=== PATIENT | female | born 1990 | race African-American/Black ===

== ENCOUNTER 2017-06-18 15:09 | Emergency (ER) | payer SELFPAY ==
[2017-06-18 16:08] LABS: Bilirubin Small (Negative); Blood, Urine Negative (Negative); Glucose, Urine (Dipstick) Negative (Negative); Ketone, Urine Negative (Negative); Nitrite Negative (Negative); Protein, Urine (Dipstick) Negative (Neg-Trace)
== END 2017-06-18 16:57 | disposition home or self-care (01) ==
LOC: SCSER 15:09
DX: R05 Cough (principal); F41.9 Anxiety disorder, unspecified; F17.210 Nicotine dependence, cigarettes, uncomplicated; J45.909 Unspecified asthma, uncomplicated
CPT/HCPCS: 81003; 81025; 99283

== ENCOUNTER 2018-04-25 15:22 | Emergency (ER) | payer SELFPAY ==
[2018-04-25] MEDS ORDERED: Ondansetron ODT 8 MG TAB ONE (15:40)
[2018-04-25] MEDS ORDERED: predniSONE 20 MG TAB ONE (15:41)
[2018-04-25 16:26] LABS: Pregnancy Test - Urine (BHCG) Negative (Negative)
[2018-04-25 16:27] LABS: Pregu Control Background? CLEAR/WHITE (CLR/WHITE); Pregu Control Bar Appear? YES (CONTROL BAR); Specific Gravity 1.025 (1.002-1.036)
--- NOTE | 2018-04-25 16:59 | RAD ---
CHEST TWO VIEWS: History: Cough. Comparison: 03-10-16 FINDINGS: Cardiac silhouette and pulmonary vasculature are unremarkable. Prominent rightward scoliotic curvatur e of the midthoracic spine. Small focus of infiltrate projects over the anterior lateral aspect of th e anterior segment left upper lobe. No pleural fluid or pneumothorax. IMPRESSION: Small left upper lobe infiltrate. Clinical correlation regarding other signs and symptoms of left upp er lobe pneumonitis is required. Please consider radiographic follow up after medical treatment to ev aluate for clearing. POS: BYRONH
== END 2018-04-25 17:05 | disposition home or self-care (01) ==
LOC: SCSER 15:22
DX: J18.9 Pneumonia, unspecified organism (principal); J45.909 Unspecified asthma, uncomplicated; F41.9 Anxiety disorder, unspecified; F17.210 Nicotine dependence, cigarettes, uncomplicated
CPT/HCPCS: 71046; 81025; 94640; J7506; J7620

== ENCOUNTER 2018-04-26 05:19 | Emergency (ER) | payer SELFPAY | END 2018-04-26 05:38 | disposition left against medical advice (07) | LOC: SCSER 05:19 | DX: J18.9 Pneumonia, unspecified organism (principal); J45.909 Unspecified asthma, uncomplicated; F41.9 Anxiety disorder, unspecified; F17.210 Nicotine dependence, cigarettes, uncomplicated | CPT/HCPCS: J7620 ==

== ENCOUNTER 2018-04-26 05:52 | Emergency (ER) | payer SELFPAY ==
[2018-04-26] MEDS ORDERED: methylPREDNISolone Sod Succ/PF 125 MG/2 ML VIAL ONE (09:30)
== END 2018-04-26 10:41 | disposition home or self-care (01) ==
LOC: ERS 05:52
DX: J18.9 Pneumonia, unspecified organism (principal); J45.901 Unspecified asthma with (acute) exacerbation; F41.9 Anxiety disorder, unspecified; F17.210 Nicotine dependence, cigarettes, uncomplicated
CPT/HCPCS: 94640; 96372; J2930; J7620

== ENCOUNTER 2019-05-28 19:15 | Inpatient (IN) | payer OTHER ==
[~2019-05-28 19:15] MED LIST: Lidocaine 2% MPF 10 ML AMP (For Epidural Use) ONE
[2019-05-28] MEDS ORDERED: hydrALAZINE 20 MG/ML VIAL SLOW IVP PRN (20:49)
[2019-05-28] MEDS ORDERED: Ibuprofen 800 MG TAB PO PRN (20:49)
[2019-05-28] MEDS ORDERED: HYDROcodone/Acetaminophen 5/325 mg Tablet PO PRN (20:49)
[2019-05-28] MEDS ORDERED: Lidocaine 1% (PF) 30 ML VIAL SC PRN (20:49)
[2019-05-28] MEDS ORDERED: Promethazine HCl 25 MG/ML VIAL IM PRN (20:49)
[2019-05-28] MEDS ORDERED: Meperidine HCl/PF 25 MG/ML VIAL IM/IV PRN (20:49)
[2019-05-28] MEDS ORDERED: Acetaminophen 500 MG TAB PO PRN (20:49)
[2019-05-28] MEDS ORDERED: NS / Oxytocin 40 units/1000ml 1,000 ML IV PRN (20:49)
[2019-05-28] MEDS ORDERED: NS w/ Oxytocin 10 units 500 ML IV SCH (20:49)
[2019-05-28] MEDS ORDERED: Carboprost 250 MCG/ML AMP IM PRN (20:49)
[2019-05-28] MEDS ORDERED: Ondansetron PF 4 MG/2 ML Vial IVP PRN (20:49)
[2019-05-28] MEDS ORDERED: Methylergonovine 0.2 MG/ML VIAL IM PRN (20:49)
[2019-05-28] MEDS ORDERED: Misoprostol 200 MCG TAB PR PRN (20:49)
[2019-05-28 20:55] VITALS: BMI 42.2
[2019-05-28] MEDS ORDERED: Misoprostol 100 MCG TAB VAG SCH (21:00)
[2019-05-28] MEDS: Lactated Ringer's 1,000 ML IV SCH (22:11)
[2019-05-28 22:15] LABS: Hemoglobin 10.8 g/dL (12.0-16.0); Mean Corpuscular HGB CONC 32.1 g/dL (32.0-36.0); Mean Corpuscular Volume 87.3 fL (78.0-98.0); Mean Platelet Volume 8.1 fL (7.4-10.4); Platelet Count 248 thou/uL (130-400); RBC Distribution Width 12.7 % (11.5-14.5); Red Blood Cell (RBC) Count 3.84 mill/uL (4.20-5.40)
[2019-05-28 22:56] LABS: HBSAg Index 0.21 S/CO (0-0.99); Hep B Surf Ag Non-Reactive S/CO (NonReactive)
[2019-05-28 22:57] LABS: Syphilis Antibody Nonreactive (Nonreactive); Syphilis Antibody Index 0.06 S/CO (<1.00 Non-Reactive)
[2019-05-29] MEDS ORDERED: Misoprostol 100 MCG TAB ONE (02:17)
[2019-05-29] MEDS: Misoprostol 100 MCG TAB VAG SCH ×6 (02:20→20:10)
[2019-05-29] MEDS: Lactated Ringer's 1,000 ML IV SCH ×3 (03:47→16:49)
[2019-05-29] MEDS: Butorphanol Tartrate 1 MG/ML VIAL SLOW IVP PRN ×2 (08:21→11:08)
--- NOTE | 2019-05-29 11:02 | PDOC.EVN ---
Event Note - Event Note Event Note: Poor response to cytotec overnight. Having frequent contractions but cervix is still not very favorable for pitocin. She is having the occasional variable deceleration and one or two questionable late decelerations, overall the FHT are category II, with good variability. She is lisa every 2 minutes though they are not affecting her cervix. After a discussion with the patient and her family about options including the option of going home and coming back another day we have decided to proceed with a Cook's balloon. SVE 1/50/-2. Cooks balloon placed using sterile gloves. 80ml of saline added to the uterine balloon, 40ml added to the vaginal balloon. After placement her SVE was 2/60/- 2. Pt tolerated well. Notably, it was a difficult placement due to the orientation of the cervix.
[2019-05-29] MEDS ORDERED: Fentanyl 4 mcg/Bup 0.1% Cadd 100 ML ONE (14:03)
[2019-05-29] MEDS ORDERED: Promethazine HCl 25 MG/ML VIAL IM PRN (16:21)
[2019-05-29] MEDS ORDERED: diphenhydrAMINE 50 MG/ML VIAL IVP PRN (16:21)
[2019-05-29] MEDS ORDERED: ePHEDrine/0.9% NaCl/PF SYRINGE 50 mg/10 ml SLOW IVP PRN (16:21)
[2019-05-29] MEDS ORDERED: Acetaminophen 325 MG TAB PO PRN (16:21)
[2019-05-29] MEDS ORDERED: Naloxone HCl 0.4 mg/ml Vial IVP PRN ×2 (16:21)
[2019-05-29] MEDS ORDERED: Ondansetron PF 4 MG/2 ML Vial IVP PRN (16:21)
[2019-05-29] MEDS ORDERED: Lactated Ringer's 500 ML IV PRN (16:21)
[2019-05-29] MEDS ORDERED: Communication Order-Pharmacy FS SCH (16:30)
[2019-05-29] MEDS ORDERED: Fentanyl 4 mcg/Bupivacaine 0.1% Cassette 100 ML EPIDURAL SCH (16:30)
--- NOTE | 2019-05-29 21:02 | PDOC.EVN ---
Event Note - Event Note Event Note: Came to bedside to evaluate patient. Has had some intermittent decelerations throughout the day but good recovery and moderate variability. Currently on 1 of pitocin. CTX Q3-4 minutes. SVE - Cook's balloon out of the cervix, removed, cervix 5-6/70/-2. FSE and IUPC placed as well for difficulty monitoring due to body habitus. Continue to titrate pitocin.
[2019-05-30] MEDS: Dextrose 5%-Lactated Ringers 1,000 ML IV SCH ×2 (01:06→05:19)
[2019-05-30] MEDS: Misoprostol 100 MCG TAB VAG SCH ×4 (01:06→09:19)
[2019-05-30] MEDS: Lactated Ringer's 1,000 ML IV SCH (05:19)
--- NOTE | 2019-05-30 05:23 | PDOC.EVN ---
Event Note - Event Note Event Note: CAlled to review fht. fetus having lates every time pitocin is raised above 2mu/ min. pit started around 22-2300. epidural placed around 1630. A very distinct 20-30 point drop in systolic bp since the epidural placement. I recommend giving ephedrine to get bp back to her baseline and drop epidural rate. Anesthesia on the floor and is happy to assist. We will rest the baby 30- 60min then attempt to increase pit again. I have shared my assessment and reccomendations to Dr Marcos.
[2019-05-30] MEDS ORDERED: Lidocaine 2% 10 ML INJ ONE ×2 (06:42→06:51)
[2019-05-30] MEDS ORDERED: PHENYLEPHRINE-NS 100 MCG/ML 10 ML SYRINGE ONE (06:47)
[2019-05-30] MEDS ORDERED: ePHEDrine/0.9% NaCl/PF SYRINGE 50 mg/10 ml ONE (06:47)
[2019-05-30] MEDS ORDERED: Ketamine 50 MG/ML (10ML VIAL) ONE (06:50)
[2019-05-30] MEDS ORDERED: Oxytocin 10 UNITS/ML VIAL ONE ×2 (06:53→07:02)
[2019-05-30] MEDS ORDERED: CEFAZOLIN 1 GM VIAL ONE (06:56)
[2019-05-30] MEDS ORDERED: Meperidine HCl/PF 25 MG/ML VIAL SLOW IVP PRN (07:41)
[2019-05-30] MEDS ORDERED: L&D-Morphine 4 MG/ML VIAL SLOW IVP PRN (07:41)
[2019-05-30] MEDS ORDERED: HYDROmorphone 2 MG/ML VIAL SLOW IVP PRN (07:41)
[2019-05-30] MEDS ORDERED: Ondansetron HCl/PF 4 MG/2 ML Vial IVP PRN (07:41)
[2019-05-30 08:11] LABS: Actual Bicarbonate (HCO3a) 21.7 mEq/L (22-28); Actual Bicarbonate (HCO3v) 23 mEq/L (22-28); Analyzer IN Cardio OR; Base Excess -5.6 mEq/L (-2.0 to +3.0); Base Excess (BEa) -7.4 mEq/L (-2.0 to +3.0)
[2019-05-30 08:35] LABS: pH (Cord, venous) 7.23 (7.32-7.43)
[2019-05-30] MEDS ORDERED: Meperidine HCl/PF 25 MG/ML VIAL ONE (08:56)
[2019-05-30] MEDS ORDERED: diphenhydrAMINE 25 MG CAP PO PRN (09:31)
[2019-05-30] MEDS ORDERED: diphenhydrAMINE 50 MG/ML VIAL IM PRN (09:31)
[2019-05-30] MEDS ORDERED: diphenhydrAMINE 50 MG/ML VIAL IVP PRN (09:31)
[2019-05-30] MEDS ORDERED: Naloxone HCl 0.4 mg/ml Vial IV PRN (09:31)
[2019-05-30] MEDS ORDERED: Ondansetron PF 4 MG/2 ML Vial IVP PRN (09:31)
[2019-05-30] MEDS ORDERED: Promethazine HCl 25 MG/ML VIAL IM PRN (09:31)
[2019-05-30] MEDS ORDERED: Zolpidem Tartrate 5 MG TAB PO PRN (09:31)
[2019-05-30] MEDS ORDERED: fentaNYL Citrate/PF 2,000 MCG in Sodium Chloride 0.9% 60 ML IV PRN (09:31)
[2019-05-30] MEDS ORDERED: Morphine 4 MG/ML VIAL ONE (09:42)
[2019-05-30] MEDS ORDERED: Communication Order-Pharmacy FS SCH (09:45)
[2019-05-30] MEDS ORDERED: Morphine 4 MG/ML VIAL SLOW IVP PRN (10:00)
[2019-05-30] MEDS ORDERED: Adacel (T-DAP) 0.5 ML SYRINGE IM ONE (10:26)
[2019-05-30] MEDS ORDERED: Acetaminophen 325 MG TAB PO PRN (10:26)
[2019-05-30] MEDS ORDERED: Lanolin Ointment 7 GM TUBE TOP PRN (10:26)
[2019-05-30] MEDS ORDERED: hydrALAZINE 20 MG/ML VIAL SLOW IVP PRN (10:26)
[2019-05-30] MEDS ORDERED: Bisacodyl 10 MG SUPP PR PRN (10:26)
[2019-05-30] MEDS ORDERED: HYDROmorphone 0.5 MG/0.5 ML SYRINGE SLOW IVP PRN (11:09)
[2019-05-30] MEDS: Ibuprofen 800 MG TAB PO SCH (13:52)
[2019-05-30] MEDS ORDERED: Ketorolac Tromethamine 30 MG/ML VIAL IVP SCH ×2 (14:30→21:00)
--- NOTE | 2019-05-30 15:57 | OP ---
DATE OF PROCEDURE: 05/30/2019 PRIMARY OBSTETRICS: Abraham Marcos MD PREOPERATIVE DIAGNOSES: 1. Intrauterine at 40 weeks' gestation. 2. Non-reassuring heart tones. POSTOPERATIVE DIAGNOSES: 1. Intrauterine at 40 weeks' gestation. 2. Non-reassuring heart tones. PROCEDURE PERFORMED: Primary lower-transverse section. OPERATOR VACUUM: Abraham Marcos MD COUNTS: Correct. CONDITION: Stable to recovery room. COMPLICATIONS: None. ESTIMATED BLOOD LOSS: 500 mL. FINDINGS: Normal-appearing uterus. No adhesions visible. Fetus in vertex presentation with a loose nuchal cord. Placenta appearing to be normal in size. Male was delivered at 0653 hours in vertex presentation with Apgars of 8 and 9. DESCRIPTION OF PROCEDURE: Ms. Jhoana Rawls is a 29-year-old G1, now P1 female, taken to the operating room for an urgent lower-transverse section as fetus has been having repetitive decelerations, this last one spontaneous in nature, off Pitocin down to the 50s, lasting for 4 to 5 minutes before taking her back to the operating room. The patient was prepared and draped in normal sterile fashion. She was placed in dorsal supine position with a leftward tilt. After epidural was confirmed to be working properly, a Pfannenstiel skin incision was made. Incision was carried down to the level of fascia. Fascia was incised and the fascial incisions were extended laterally with Dunn scissors. Rosalinda clamps were used to grab the superior and inferior edges of the underlying fascia and was elevated off the rectus muscles with blunt and sharp dissection. The peritoneal cavity was then entered into bluntly and extended bluntly. An Be O was then inserted giving adequate visualization for delivery. A lower-transverse incision was made. was delivered in vertex presentation to a sterile field. Cord was clamped and cut. Mouth was bulb suctioned and the infant was handed off to the waiting attendance for evaluation. The placenta was then delivered with uterine massage, and the uterus was cleared of all clot and debris. The uterus was then closed in 2 layers with 1-0 Monocryl in initially a running locked layer. Second layer was imbricated. The uterus was inspected, found to be hemostatic. The peritoneum was then closed with 2-0 chromic in a running fashion. The fascia was closed with 0 Vicryl in a running fashion. Subcu fat was closed with 2-0 plain gut in a running fashion. The skin was closed with 4-0 Monocryl in a running fashion. The procedure was completed. Dressings were placed and the patient was taken to recovery room in stable condition. Job ID: [id number]
[2019-05-31] MEDS: Ferrous Sulfate 325 MG TAB PO SCH ×3 (01:17→23:06)
[2019-05-31] MEDS: Docusate Calcium (SURFAK) 240 MG CAP PO SCH ×3 (01:17→20:07)
[2019-05-31] MEDS: Ibuprofen 800 MG TAB PO SCH (01:18)
[2019-05-31] MEDS: Ibuprofen 800 MG TAB PO PRN ×3 (03:12→22:37)
[2019-05-31] MEDS: HYDROcodone/Acetaminophen 5/325 mg Tablet PO PRN ×3 (04:34→20:08)
[2019-05-31] MEDS: Simethicone Chewable 80 MG TAB PO PRN ×2 (04:36→20:07)
[2019-05-31 05:32] LABS: Hemoglobin 10.4 g/dL (12.0-16.0); Mean Corpuscular HGB CONC 32.6 g/dL (32.0-36.0); Mean Corpuscular Hemoglobin 28.1 pg (27.0-31.0); Mean Corpuscular Volume 86.2 fL (78.0-98.0); Mean Platelet Volume 7.3 fL (7.4-10.4); Platelet Count 222 thou/uL (130-400); RBC Distribution Width 12.6 % (11.5-14.5); White Blood Cell (WBC) Count 20.2 thou/uL (4.8-10.8)
--- NOTE | 2019-05-31 12:12 | PDOC.PP ---
Post Progress Note Post Day #: 1 Subjective: Doing well. Worried about baby in NICU. Showered this AM. PO intake tolerated: yes Flatus: yes Ambulation: yes Vital Signs (12 hours) Temp Pulse Resp BP Pulse Ox 05/31/19 11:45 98.2 F 82 20 122/65 05/31/19 08:04 97.7 F 86 20 127/67 97 Weight Weight 231 lb - Physical Examination General: NAD Cardiovascular: no m/r/g, RRR Respiratory: clear to auscultation bilaterally, non-labored breathing Abdominal: + bowel sounds, lochia, no distention, appropriately TTP Extremities: negative homans (B) Skin: CS incision dry & intact Neurological: no gross focal deficits Psychiatric: A&Ox3 Result Diagrams: 05/31/19 05:15 Additional Labs: Post Labs Blood Type O POSITIVE 05/28/19 22:06 Hep Bs Antigen Non-Reactive S/CO (NonReactive) 05/28/19 22:06 (1) delivery delivered Code(s): O82 - ENCOUNTER FOR DELIVERY WITHOUT INDICATION Status: Acute - Assessment/Plan Routine PP care Ambulate Encouraged to visit baby in NICU Advised to begin pumping breastmilk - baby is not eating yet but need to build up supply
--- NOTE | 2019-05-31 12:17 | PDOC.EVN ---
Event Note - Event Note Event Note: Late documentation: Overnight 05/30/19 I was in communication with the RN all night. Overall the status was reassuring but the baby would have the occasional late deceleration, but would recover well and had good variability throughout the night. We bolused the IVF several times and repositioned. We were never able to get adequate contractions however. Every time we would increase the pitocin, the baby would have a late decel. Early in the AM I spoke with Dr. Dan who felt that mom's BP after the epidural might have something to do with the baby not tolerating contractions so we turned off the pitocin and turned down the epidural in an effort to raise her BP. During that time, the baby had a prolonged deceleration into the 50's and was taken urgently to the OR. I was in communication with the Rn and Dr. Dan throughout that process. See the C/S notes for details after that.
[2019-06-01] MEDS ORDERED: HYDROcodone/Acetaminophen 5/325 mg Tablet ONE (03:55)
[2019-06-01] MEDS: Docusate Calcium (SURFAK) 240 MG CAP PO SCH ×2 (12:27→21:51)
[2019-06-01] MEDS: Ferrous Sulfate 325 MG TAB PO SCH ×2 (12:28→21:52)
[2019-06-01] MEDS: HYDROcodone/Acetaminophen 5/325 mg Tablet PO PRN (14:09)
[2019-06-01] MEDS: Ibuprofen 800 MG TAB PO PRN ×2 (14:09→21:51)
[2019-06-01] MEDS: Simethicone Chewable 80 MG TAB PO PRN ×2 (14:09→21:50)
[2019-06-02] MEDS ORDERED: Sodium Chloride 0.9% 10 ML ONE (03:55)
[2019-06-02] MEDS: Simethicone Chewable 80 MG TAB PO PRN ×3 (05:29→20:40)
[2019-06-02] MEDS: HYDROcodone/Acetaminophen 5/325 mg Tablet PO PRN ×4 (05:29→20:40)
[2019-06-02] MEDS: Ibuprofen 800 MG TAB PO PRN ×2 (05:29→20:40)
[2019-06-02] MEDS: Ferrous Sulfate 325 MG TAB PO SCH ×2 (09:46→22:03)
[2019-06-02] MEDS: Docusate Calcium (SURFAK) 240 MG CAP PO SCH ×2 (09:46→22:54)
[2019-06-03] MEDS: Simethicone Chewable 80 MG TAB PO PRN (05:50)
[2019-06-03] MEDS: Ibuprofen 800 MG TAB PO PRN ×2 (05:50→15:07)
[2019-06-03] MEDS: HYDROcodone/Acetaminophen 5/325 mg Tablet PO PRN (05:50)
[2019-06-03] MEDS: Ferrous Sulfate 325 MG TAB PO SCH (08:26)
[2019-06-03] MEDS: Docusate Calcium (SURFAK) 240 MG CAP PO SCH (08:28)
[2019-06-03 08:37] VITALS: BP 119/66; TEMP 97.7
--- NOTE | 2019-06-03 11:15 | PDOC.PP ---
Post Progress Note Post Day #: 2 Subjective: Doing well. Was not taking pain meds because made her sleepy and she wanted to go back and forth to NICU. Baby being treated for GBS sepsis. Improving. Mom is pumping every 3 hours and doing well. PO intake tolerated: yes Flatus: yes Ambulation: yes Vital Signs (12 hours) Temp Pulse Resp BP Pulse Ox 06/03/19 08:36 97.7 F 71 20 119/66 99 Weight Weight 231 lb - Physical Examination General: NAD Cardiovascular: no m/r/g, RRR Respiratory: clear to auscultation bilaterally Abdominal: + bowel sounds Extremities: negative homans (B) Skin: CS incision dry & intact Result Diagrams: 05/31/19 05:15 Additional Labs: Post Labs Blood Type O POSITIVE 05/28/19 22:06 Hep Bs Antigen Non-Reactive S/CO (NonReactive) 05/28/19 22:06 (1) delivery delivered Code(s): O82 - ENCOUNTER FOR DELIVERY WITHOUT INDICATION Status: Acute - Assessment/Plan Routine post-op care Advised more regular use of pain meds Continue to pump Likely D/C Thursday
--- NOTE | 2019-06-03 11:17 | PDOC.PP ---
Post Progress Note Post Day #: 3 Subjective: Pain better controlled. No complaints at this time. Pumping more milk each time. PO intake tolerated: yes Flatus: yes Ambulation: yes Vital Signs (12 hours) Temp Pulse Resp BP Pulse Ox 06/03/19 08:36 97.7 F 71 20 119/66 99 Weight Weight 231 lb - Physical Examination General: NAD Cardiovascular: no m/r/g, RRR Respiratory: clear to auscultation bilaterally, non-labored breathing Abdominal: + bowel sounds, lochia, no distention, appropriately TTP Skin: CS incision dry & intact Neurological: no gross focal deficits Psychiatric: A&Ox3 Result Diagrams: 05/31/19 05:15 Additional Labs: Post Labs Blood Type O POSITIVE 05/28/19 22:06 Hep Bs Antigen Non-Reactive S/CO (NonReactive) 05/28/19 22:06 (1) delivery delivered Code(s): O82 - ENCOUNTER FOR DELIVERY WITHOUT INDICATION Status: Acute - Assessment/Plan Routine post-op care D/C tomorrow
--- NOTE | 2019-06-03 11:18 | PDOC.PP ---
Post Progress Note Post Day #: 4 Subjective: Doing well. Ready for D/C. Was able to latch baby yesterday. Milk is coming in well. PO intake tolerated: yes Flatus: yes Ambulation: yes Vital Signs (12 hours) Temp Pulse Resp BP Pulse Ox 06/03/19 08:36 97.7 F 71 20 119/66 99 Weight Weight 231 lb - Physical Examination General: NAD Cardiovascular: no m/r/g, RRR Respiratory: clear to auscultation bilaterally, non-labored breathing Abdominal: + bowel sounds, lochia, no distention, appropriately TTP Extremities: negative homans (B) Skin: CS incision dry & intact (Under sliver dressing, no sign of oozing.) Result Diagrams: 05/31/19 05:15 Additional Labs: Post Labs Blood Type O POSITIVE 05/28/19 22:06 Hep Bs Antigen Non-Reactive S/CO (NonReactive) 05/28/19 22:06 (1) delivery delivered Code(s): O82 - ENCOUNTER FOR DELIVERY WITHOUT INDICATION Status: Acute - Assessment/Plan Routine care D/C today F/U in 1 week with me
== END 2019-06-03 15:10 | disposition home or self-care (01) | DRG 788 ==
LOC: L&D 20:22 → 3SW 05-30 13:47
PROVIDERS: ADMIT Family Medicine; ATTEND Family Medicine
PROC: 3E033VJ Introduction of Other Hormone into Peripheral Vein, Percutaneous Approach (ICD-10-PCS; 2019-05-28)
PROC: 0U7C7ZZ Dilation of Cervix, Via Natural or Artificial Opening (ICD-10-PCS; 2019-05-29)
PROC: 10D00Z1 Extraction of Products of Conception, Low, Open Approach (ICD-10-PCS; principal; 2019-05-30)
DX: O76 Abnormality in fetal heart rate and rhythm complicating labor and delivery (principal); Z3A.40 40 weeks gestation of pregnancy; Z37.0 Single live birth
CPT/HCPCS: 36415; 51702; 82805; 85027; 86780; 86850; 86900; 86901; 87340; 88307; C1726; J0595; J0690; J1170; J1885; J2001; J2175; J2270; J2550; J2590; J3010; J3490

== ENCOUNTER 2021-08-05 04:27 | Emergency (ER) | payer OTHER, SELFPAY | END 2021-08-05 05:01 | disposition home or self-care (01) | LOC: ERS 04:27 | DX: S29.012A Strain of muscle and tendon of back wall of thorax, initial encounter (principal); J45.909 Unspecified asthma, uncomplicated; F17.210 Nicotine dependence, cigarettes, uncomplicated; V43.52XA Car driver injured in collision with other type car in traffic accident, initial encounter | CPT/HCPCS: 99283 ==

== ENCOUNTER 2022-04-14 10:12 | Emergency (ER) | payer SELFPAY ==
[2022-04-14] MEDS ORDERED: Acetaminophen 500 MG TAB ONE (11:18)
== END 2022-04-14 13:17 | disposition home or self-care (01) ==
LOC: ERS 10:12
DX: J06.9 Acute upper respiratory infection, unspecified (principal); J45.909 Unspecified asthma, uncomplicated; F17.210 Nicotine dependence, cigarettes, uncomplicated
CPT/HCPCS: 87081; 87430; 87804; 99283

== ENCOUNTER 2022-05-12 18:15 | Emergency (ER) | payer OTHER, SELFPAY ==
[2022-05-12] MEDS ORDERED: Ketorolac Tromethamine 30 MG/ML VIAL ONE (19:51)
== END 2022-05-12 20:19 | disposition home or self-care (01) ==
LOC: ERS 18:15
DX: S16.1XXA Strain of muscle, fascia and tendon at neck level, initial encounter (principal); S80.02XA Contusion of left knee, initial encounter; J45.909 Unspecified asthma, uncomplicated; V89.2XXA Person injured in unspecified motor-vehicle accident, traffic, initial encounter
CPT/HCPCS: 96372; 99283; J1885

== ENCOUNTER 2023-03-07 10:43 | Emergency (ER) | payer SELFPAY ==
[2023-03-07 11:07] LABS: #Basophils 0.1 thou/uL (0.0-0.2); #Eosinphils 0.2 thou/uL (0.0-0.7); #Monocytes 0.4 thou/uL (0.11-0.59); #Neutrophils 3.4 thou/uL (1.40-6.50); %Basophils 0.9 % (0.0-1.0); %Lymphocytes 24.8 % (21.0-51.0); %Monocytes 7.4 % (0.0-10.0); %Neutrophils 63.5 % (42.0-75.0); Hematocrit 38.7 % (36.0-47.0); Hemoglobin 11.9 g/dL (12.0-16.0); Mean Corpuscular HGB CONC 30.7 g/dL (32.0-36.0); Mean Corpuscular Hemoglobin 27.4 pg (27.0-31.0); Mean Corpuscular Volume 89.2 fl (78.0-98.0); Mean Platelet Volume 10.8 fL (7.4-10.4); Platelet Count 234 10x3/uL (130-400); RBC Distribution Width 13.3 % (11.5-14.5); Red Blood Cell (RBC) Count 4.34 mill/uL (4.20-5.40); White Blood Cell (WBC) Count 5.4 10x3/uL (4.8-10.8)
[2023-03-07 11:28] LABS: ALT (SGPT) 13 U/L (8-55); AST (SGOT) 17 U/L (5-34); Albumin 3.8 g/dL (3.5-5.0); Alkaline Phosphatase 57 U/L (40-110); Anion Gap 11 mmol/L (10-20); BUN (Urea Nitrogen) 6 mg/dL (7.0-18.7); Bilirubin, Total 0.4 mg/dL (0.2-1.2); Calc. Creatinine Clearance 0 mL/min (70-130); Carbon Dioxide 24 mmol/L (22-29); Chloride 108 mmol/L (98-107); Estimated GFR 91; Globulin 3.2 g/dL (2.4-3.5); Glucose 88 mg/dL (70-105); Potassium 3.6 mmol/L (3.5-5.1); Sodium 139 mmol/L (136-145)
[2023-03-07 11:38] LABS: Bacteria/HPF 3+ HPF (None Seen); Bilirubin Negative (Negative); Blood, Urine 3+ (Negative); CAUTI Indications for Culture Dysuria,urgency,freq; Clarity Turbid (Clear); Glucose, Urine (Dipstick) Normal (Negative); Ketone, Urine Negative (Negative); Leukocyte Negative Leu/uL (Negative); Mucous/LPF Rare LPF (<2+); Nitrite Negative (Negative); Protein, Urine (Dipstick) 30 mg/dL (Neg-Trace); RBC/HPF Greater than 50 HPF (0-3); Renal Epithelial 0-3 HPF (None Seen); Squamous Epithelial 0-3 HPF (0-3)
[2023-03-07 11:52] LABS: Urine Culture Reflex No No
[2023-03-08 14:50] LABS: Chlamydia by PCR, Vaginal Swab Not Detected (NotDetected); GC by PCR, Vaginal Swab Not Detected (NotDetected)
== END 2023-03-07 14:53 | disposition home or self-care (01) ==
LOC: ERS 10:43
DX: O26.851 Spotting complicating pregnancy, first trimester (principal); O99.891 Other specified diseases and conditions complicating pregnancy; R10.9 Unspecified abdominal pain; F17.290 Nicotine dependence, other tobacco product, uncomplicated; O99.331 Smoking (tobacco) complicating pregnancy, first trimester; Z3A.01 Less than 8 weeks gestation of pregnancy
CPT/HCPCS: 36415; 76856; 80053; 81001; 84702; 85025; 86900; 86901; 87480; 87491; 87510; 87591; 87660